=== PATIENT | male | born 1970 | race Hispanic/Latino ===

== ENCOUNTER 2022-03-17 12:45 | Emergency (ER) | payer OTHER ==
[2022-03-17] MEDS ORDERED: Lidocaine 1% w/Epinephrine 1:100K 20 ML VIAL ONE (13:00)
[2022-03-17] MEDS ORDERED: Boostrix 0.5 ML (Tdap) VIAL (>/=7 yrs of age) ONE (13:18)
[2022-03-17] MEDS ORDERED: Bacitracin 1 PK ONE (13:18)
== END 2022-03-17 14:13 | disposition home or self-care (01) ==
LOC: NAV ERS 12:45
DX: S51.812A Laceration without foreign body of left forearm, initial encounter (principal); Z23 Encounter for immunization; W22.09XA Striking against other stationary object, initial encounter; Y99.0 Civilian activity done for income or pay
CPT/HCPCS: 12002; 90471; 90715

== ENCOUNTER 2022-04-17 11:48 | Emergency (ER) | payer SELFPAY | END 2022-04-17 13:24 | disposition home or self-care (01) | LOC: NAV ERS 11:48 | DX: S51.812D Laceration without foreign body of left forearm, subsequent encounter (principal); R03.0 Elevated blood-pressure reading, without diagnosis of hypertension; X58.XXXD Exposure to other specified factors, subsequent encounter ==

== ENCOUNTER 2022-06-13 17:35 | Emergency (ER) | payer SELFPAY ==
[2022-06-13] MEDS ORDERED: Lidocaine 1% (PF) 30 ML VIAL ONE (17:50)
== END 2022-06-13 18:41 | disposition home or self-care (01) ==
LOC: NAV ERS 17:35
DX: S51.812A Laceration without foreign body of left forearm, initial encounter (principal); F10.129 Alcohol abuse with intoxication, unspecified; W26.8XXA Contact with other sharp object(s), not elsewhere classified, initial encounter
CPT/HCPCS: 12004; J2001